=== PATIENT | female | born 1940 | race Hispanic/Latino ===

== ENCOUNTER 2020-01-30 17:21 | Emergency (ER) | payer MEDICARE ==
[2020-01-30 18:44] LABS: APPEARANCE,URINE Clear (CLEAR); BILIRUBIN,URINE Negative (NEGATIVE); COLOR,URINE Yellow (YELLOW); GLUCOSE, URINE (UA) Negative (NEGATIVE); KETONES,URINE Negative (NEGATIVE); LEUKOCYTE ESTERASE ,URINE Trace (NEGATIVE); NITRATE,URINE Positive (NEGATIVE); OCCULT BLOOD,URINE Negative (NEGATIVE); PROTEIN,URINE POS 1+ mg/dL (NEGATIVE); UROBILINOGEN,URINE 0.2 mg/dL (0.2-1.0)
[2020-01-30 18:54] LABS: BACTERIA,URINE Moderate /HPF (None Seen); RBC,URINE 0-1 /HPF (0-1)
[2020-01-30 18:55] LABS: SQUAMOUS EPITHELIAL CELL,UR Rare /HPF (0-2); TRANSITIONAL EPI CELLS,URINE Rare /HPF (None Seen)
[2020-01-30] MEDS ORDERED: CEFTRIAXONE SODIUM 1 GM ONE (19:00)
[2020-01-30 19:17] LABS: CREATININE 1.3 mg/dL (0.5-1.5); POTASSIUM 4.6 mmol/L (3.5-5.1)
[2020-01-30 19:21] LABS: ALBUMIN 3.8 g/dL (3.5-5.0); BILIRUBIN,TOTAL 0.4 mg/dL (0.2-1.0); TOTAL PROTEIN, SERUM 8.5 g/dL (6.0-8.3)
[2020-01-30 19:25] LABS: RAPID GROUP A STREP NEGATIVE (NEGATIVE)
[2020-01-30 19:26] LABS: INR 0.88 (0.85-1.15); PARTIAL THROMBOPLASTIN TIME 30.7 SEC (26.3-35.5); PROTHROMBIN TIME 9.5 SEC (9.6-11.6)
[2020-01-30 19:30] LABS: B-TYPE NATRIURETIC PEPTIDE 43 pg/mL (0-100)
[2020-01-30 19:32] LABS: BASOPHILS % (AUTO) 0.1 % (0.0-5.0); EOSINOPHILS % (AUTO) 0.1 % (0.0-8.0); HEMATOCRIT 36.7 % (36-48); LYMPHOCYTES % (AUTO) 18.5 % (21.0-51.0); MEAN CORPUSCULAR HEMOGLOBIN 29.3 pg (27.0-33.0); MEAN CORPUSCULAR HGB CONC 32.4 g/dL (32.0-36.0); MEAN CORPUSCULAR VOLUME 90.4 fL (79-99); MONOCYTES % (AUTO) 9.4 % (3.0-13.0); NEUTROPHILS % (AUTO) 71.6 % (40.0-77.0); PLATELET COUNT (AUTO) 201 K/uL (130-400); RED BLOOD CELL COUNT(AUTO) 4.06 MIL/uL (4.00-5.50); RED CELL DISTRIBUTION WIDTH 13.2 % (11.0-15.5); WHITE BLOOD COUNT (AUTO) 6.8 K/uL (4.8-10.8)
[2020-01-30] MEDS ORDERED: ACETAMINOPHEN 325 MG TAB ONE (21:09)
== END 2020-01-30 21:53 | disposition home or self-care (01) ==
LOC: EDH 17:21
DX: U07.1 COVID-19 (principal); J12.89 Other viral pneumonia; N30.00 Acute cystitis without hematuria; R10.84 Generalized abdominal pain; E11.9 Type 2 diabetes mellitus without complications; I10 Essential (primary) hypertension
CPT/HCPCS: 36415; 70450; 74176; 80053; 81001; 82550; 83605; 83690; 83880; 84484; 85025; 85610; 85730; 87077; 87088; 87186; 87804 ×2; 87880; 93005; 96374; 99285; J0696; U0003

== ENCOUNTER 2020-02-02 09:15 | Inpatient (IN) | payer MEDICARE ==
[~2020-02-02] VITALS: Ht 152.4 cm; Wt 66.2 kg
[2020-02-02] MEDS ORDERED: SODIUM CHLORIDE 0.9% 250 ML IV ONE (09:44)
[2020-02-02] MEDS ORDERED: CEFTRIAXONE SODIUM 1 GM ONE (09:45)
[2020-02-02 10:11] LABS: APPEARANCE,URINE Clear (CLEAR); BILIRUBIN,URINE Negative (NEGATIVE); COLOR,URINE Dark Yellow (YELLOW); GLUCOSE, URINE (UA) Negative (NEGATIVE); KETONES,URINE 40 mg/dL (NEGATIVE); LEUKOCYTE ESTERASE ,URINE Negative (NEGATIVE); NITRATE,URINE Positive (NEGATIVE); OCCULT BLOOD,URINE Negative (NEGATIVE); PROTEIN,URINE POS 2+ mg/dL (NEGATIVE)
[2020-02-02 10:21] LABS: BACTERIA,URINE Few /HPF (None Seen); RBC,URINE None Seen /HPF (0-1); SQUAMOUS EPITHELIAL CELL,UR Rare /HPF (0-2); WBC,URINE None Seen /HPF (0-1)
[2020-02-02 10:27] LABS: BASOPHILS % (AUTO) 0.2 % (0.0-5.0); EOSINOPHILS % (AUTO) 2.1 % (0.0-8.0); HEMATOCRIT 35.8 % (36-48); LYMPHOCYTES % (AUTO) 10.1 % (21.0-51.0); MEAN CORPUSCULAR HEMOGLOBIN 29.7 pg (27.0-33.0); MEAN CORPUSCULAR HGB CONC 33.2 g/dL (32.0-36.0); MEAN CORPUSCULAR VOLUME 89.3 fL (79-99); MONOCYTES % (AUTO) 10.2 % (3.0-13.0); NEUTROPHILS % (AUTO) 76.9 % (40.0-77.0); PLATELET COUNT (AUTO) 273 K/uL (130-400); RED BLOOD CELL COUNT(AUTO) 4.01 MIL/uL (4.00-5.50); RED CELL DISTRIBUTION WIDTH 12.8 % (11.0-15.5); WHITE BLOOD COUNT (AUTO) 6.7 K/uL (4.8-10.8)
[2020-02-02 10:44] LABS: INR 0.94 (0.85-1.15); PARTIAL THROMBOPLASTIN TIME 34.3 SEC (26.3-35.5); PROTHROMBIN TIME 10.2 SEC (9.6-11.6)
[2020-02-02 10:46] LABS: ALANINE AMINOTRANSFERASE 36 U/L (12-78); ALBUMIN 3.3 g/dL (3.5-5.0); ASPARTATE AMINOTRANSFERASE 59 U/L (10-37); BILIRUBIN,TOTAL 0.5 mg/dL (0.2-1.0); CARBON DIOXIDE 25 mmol/L (21-32); CHLORIDE 100 mmol/L (101-111); CREATINE KINASE, TOTAL 114 U/L (21-232); GLOMERULAR FILTR. RATE CALC 57 mL/min (>60); GLUCOSE,RANDOM 177 mg/dL (70-105); LIPASE 193 U/L (114-286); MYOGLOBIN 52 ng/mL (10-92); POTASSIUM 4.3 mmol/L (3.5-5.1); SODIUM SERUM 134 mmol/L (136-145); TOTAL PROTEIN, SERUM 7.4 g/dL (6.0-8.3); TROPONIN I < 0.04 ng/mL (0.00-0.06); UREA NITROGEN, BLOOD 18 mg/dL (7-18)
[2020-02-02 11:00] LABS: B-TYPE NATRIURETIC PEPTIDE 30 pg/mL (0-100)
[2020-02-02] MEDS ORDERED: ACETAMINOPHEN 325 MG TAB ONE (12:31)
[2020-02-02] MEDS ORDERED: PHENAZOPYRIDINE HCL 200 MG TABLET ONE (12:31)
[2020-02-02 12:47] LABS: ABG BASE EXCESS 1.5 mmol/L (-2.0-3.0); ABG HCO3 25.1 mmol/L (21.0-28.0); ABG OXYGEN SATURATION 93.6 % (95.0-99.0); ABG PCO2 36 mmHg (32-45)
[2020-02-02] MEDS ORDERED: DOXYCYCLINE HYCLATE 100 MG TABLET PO ONE (14:48)
[2020-02-02] MEDS: CEFTRIAXONE SODIUM 1 GM IVP SCH (20:00)
[2020-02-02] MEDS: DOXYCYCLINE HYCLATE 100 MG TABLET PO SCH (21:00)
[2020-02-02] MEDS ORDERED: ACETAMINOPHEN-CODEINE 300/30MG TAB ONE (21:51)
[2020-02-03] MEDS ORDERED: LACTATED RINGERS 1000ML 1,000 ML IV SCH (05:00)
[2020-02-03] MEDS ORDERED: DOXYCYCLINE HYCLATE 100 MG TABLET PO ONE (05:00)
[2020-02-03 06:10] VITALS: BP 165/59
--- NOTE | 2020-02-03 06:10 | NUR ---
PT ARRIVED VIA STRETCHER ER NURSE. PT AAOx3 DENIES PAIN, IS SHIVERING, AFEBRILE. DRY NON PRODUCTIVE COUGH. ON 3L VIA MA 94%. BED TO LOWEST LEVEL. CALL LIGHT WITHIN REACH.
[2020-02-03 07:30] LABS: BASOPHILS % (AUTO) 0.1 % (0.0-5.0); LYMPHOCYTES % (AUTO) 13.3 % (21.0-51.0); MEAN CORPUSCULAR HEMOGLOBIN 29.4 pg (27.0-33.0); MEAN CORPUSCULAR HGB CONC 32.2 g/dL (32.0-36.0); MEAN CORPUSCULAR VOLUME 91.1 fL (79-99); MONOCYTES % (AUTO) 12.9 % (3.0-13.0); NEUTROPHILS % (AUTO) 72.9 % (40.0-77.0); PLATELET COUNT (AUTO) 299 K/uL (130-400); RED BLOOD CELL COUNT(AUTO) 3.95 MIL/uL (4.00-5.50); RED CELL DISTRIBUTION WIDTH 12.9 % (11.0-15.5); WHITE BLOOD COUNT (AUTO) 7.9 K/uL (4.8-10.8)
[2020-02-03 07:53] LABS: CREATININE 0.7 mg/dL (0.5-1.5); CRP QUANTITATIVE 158.6 mg/L (0.00-9.0); POTASSIUM 5.2 mmol/L (3.5-5.1)
[2020-02-03] MEDS: DOXYCYCLINE HYCLATE 100 MG TABLET PO SCH ×2 (07:59→21:14)
[2020-02-03] MEDS: PHENAZOPYRIDINE HCL 200 MG TABLET PO SCH (07:59)
[2020-02-03 08:00] VITALS: BP 131/70
[2020-02-03] MEDS: CEFTRIAXONE SODIUM 1 GM IVP SCH ×2 (08:00→21:14)
[2020-02-03] MEDS: ACETAMINOPHEN-CODEINE 300/30MG TAB PO PRN ×2 (08:23→21:18)
[2020-02-03] MEDS: METHYLPREDNISOLONE SOD SUCC 40MG/ML 1ML IVP SCH ×2 (08:34→21:14)
[2020-02-03] MEDS ORDERED: ENOXAPARIN SODIUM 40 MG/0.4 ML SYRINGE SQ SCH (09:00)
--- NOTE | 2020-02-03 09:33 | NUR ---
DCP: HOME WITH FAMILY Sw unable to meet with pt who is in [facility] unit. Sw spoke to pt's son Frederick Castelan [phone]. Son reports that prior to admit pt was living at home with her grandson. Son states pt is able to complete all ADLS on her own, uses no in home care services or DME. Son transports as needed. PCP is Dr Logan and [facility] is used for rx meds. [place]. Addendum: 02/03/20 at 0936 by SAAD CIFUENTES Amended: Links added.
--- NOTE | 2020-02-03 10:41 | NUR ---
CHART CHECK COMPLETED. Pt IS A 79 Y.O. FEMALE ADMITTED SECONDARY TO COMPLICATED UTI, COVID PNA, DEHYDRATION. Pt HAS A PAST MEDICAL HISTORY SIGNIFICANT FOR CHOLECYSTECTOMY, DMII, HTN. Pt CURRENTLY ON REGULAR TEXTURE, THIN LIQUIDS. SKILLED SPEECH THERAPY IS NOT WARRANTED AT THIS TIME. Addendum: 02/03/20 at 1044 by KIMO HAMILTON, [facility] Amended: Links added.
[2020-02-03 12:00] VITALS: BP 126/63
[2020-02-03 16:00] VITALS: BP 146/80
[2020-02-03] MEDS ORDERED: ONDA4TAB10 PO (16:39)
[2020-02-03] MEDS ORDERED: PHEN99.5 PO (16:39)
[2020-02-03] MEDS ORDERED: ASCO500C18 PO (16:39)
[2020-02-03] MEDS ORDERED: METF-444 PO (16:39)
[2020-02-03] MEDS ORDERED: LOSA50TA64 PO (16:39)
[2020-02-03] MEDS ORDERED: LEVO500T89 PO (16:39)
[2020-02-03] MEDS ORDERED: MV-M1TAB57 PO (16:39)
[2020-02-03] MEDS ORDERED: ACET-66 PO (16:39)
[2020-02-03] MEDS ORDERED: CHOL100046 PO (16:39)
[2020-02-03] MEDS ORDERED: DEXTROSE 50%-WATER 50 ML DISP.SYRIN IV PRN (17:00)
[2020-02-03] MEDS ORDERED: GLUCAGON 1MG KIT 1 MG ML IM PRN (17:00)
--- NOTE | 2020-02-03 20:00 | NUR ---
PM Assessment Received pt in bed, with oxygen re-initiated at 2L/NC as reported by SANGEETA Lam O2 sat 86, routine assessment done, plan of care discuss with current treatments. Pt claimed slight SOB with no exertion, assurance given that we are closely monitoring as how she is doing. Pt encourage to do deep breathing exercises, explained how to do it, & re-demonstrated well. Call light noted not working, fix by Genaro RUTHERFORD as pt claimed has been trying to call but no one answers.
[2020-02-03 20:45] VITALS: BP 131/72
[2020-02-03] MEDS: ENOXAPARIN SODIUM 40 MG/0.4 ML SYRINGE SQ SCH (21:16)
[2020-02-03] MEDS: INSULIN GLARGINE 100 UNITS/ML 10 ML VIAL SQ SCH (21:32)
[2020-02-03] MEDS: INSULIN HUMULIN R 100 UNIT/ML 3ML SQ SCH (21:34)
[2020-02-03 23:54] VITALS: BP 153/78
[2020-02-04] MEDS: GUAIFENESIN-DM 200/20 MG 10 ML PO PRN ×2 (02:53→11:04)
[2020-02-04 03:20] VITALS: BP 151/74
[2020-02-04 06:16] LABS: EOSINOPHILS % (AUTO) 2.5 % (0.0-8.0); HEMATOCRIT 32.5 % (36-48); LYMPHOCYTES % (AUTO) 13.3 % (21.0-51.0); MEAN CORPUSCULAR HEMOGLOBIN 29.6 pg (27.0-33.0); MEAN CORPUSCULAR HGB CONC 33.2 g/dL (32.0-36.0); MONOCYTES % (AUTO) 5.1 % (3.0-13.0); NEUTROPHILS % (AUTO) 77.9 % (40.0-77.0); PLATELET COUNT (AUTO) 333 K/uL (130-400); RED BLOOD CELL COUNT(AUTO) 3.65 MIL/uL (4.00-5.50); RED CELL DISTRIBUTION WIDTH 12.9 % (11.0-15.5); WHITE BLOOD COUNT (AUTO) 6.7 K/uL (4.8-10.8)
[2020-02-04] MEDS: INSULIN HUMULIN R 100 UNIT/ML 3ML SQ SCH ×4 (06:37→21:00)
[2020-02-04 06:44] LABS: ALANINE AMINOTRANSFERASE 34 U/L (12-78); ALBUMIN 2.8 g/dL (3.5-5.0); ASPARTATE AMINOTRANSFERASE 57 U/L (10-37); BILIRUBIN,TOTAL 0.4 mg/dL (0.2-1.0); CARBON DIOXIDE 25 mmol/L (21-32); CHLORIDE 102 mmol/L (101-111); CREATININE 0.9 mg/dL (0.5-1.5); GLOMERULAR FILTR. RATE CALC 65 mL/min (>60); GLUCOSE,RANDOM 178 mg/dL (70-105); LACTATE DEHYDROGENASE 250 U/L (81-234); POTASSIUM 4.1 mmol/L (3.5-5.1); SODIUM SERUM 136 mmol/L (136-145); TOTAL PROTEIN, SERUM 7.5 g/dL (6.0-8.3); UREA NITROGEN, BLOOD 22 mg/dL (7-18)
[2020-02-04 08:39] VITALS: BP 162/89
[2020-02-04] MEDS: METHYLPREDNISOLONE SOD SUCC 40MG/ML 1ML IVP SCH ×2 (09:45→21:40)
[2020-02-04] MEDS: PHENAZOPYRIDINE HCL 200 MG TABLET PO SCH (09:45)
[2020-02-04] MEDS: CEFTRIAXONE SODIUM 1 GM IVP SCH ×2 (09:46→21:40)
[2020-02-04] MEDS: DOXYCYCLINE HYCLATE 100 MG TABLET PO SCH ×2 (09:46→21:40)
[2020-02-04] MEDS: ENOXAPARIN SODIUM 40 MG/0.4 ML SYRINGE SQ SCH ×2 (09:48→21:41)
[2020-02-04 12:42] VITALS: BP 143/73
[2020-02-04] MEDS ORDERED: KETOROLAC TROMETHAMINE 30MG/ML IV SCH (12:45)
[2020-02-04] MEDS: BENZOCAINE/MENTH/CETYLPYRD CL 1 EACH LOZENGE MM PRN (13:12)
[2020-02-04 16:29] VITALS: BP 145/77
[2020-02-04] MEDS ORDERED: ONDANSETRON ODT 4 MG TAB PO PRN (17:15)
[2020-02-04] MEDS ORDERED: LOSARTAN 50 MG TABLET PO PRN (17:15)
[2020-02-04] MEDS: METFORMIN HCL 500 MG TABLET PO SCH (18:00)
[2020-02-04] MEDS: PHARMACY COMMUNICATION MISC SCH (18:09)
--- NOTE | 2020-02-04 19:55 | NUR ---
PM Assessment Received pt on semi supine position, routine assessment done, plan of care discuss & pt confirm awareness pending U/S of the abdomen, reminded to remain NPO for now. Pt currently denies discomfort.
[2020-02-04 20:17] VITALS: BP 144/72
[2020-02-04] MEDS ORDERED: PHENAZOPYRIDINE HCL 99.5 MG PO SCH (21:00)
[2020-02-04] MEDS: INSULIN GLARGINE 100 UNITS/ML 10 ML VIAL SQ SCH (21:43)
--- NOTE | 2020-02-04 22:54 | NUR ---
Re: ordered U/S of the abdomen Received a call from the radiology c/o [facility] & stated that radiologist Dr. Lennon would like to clarify whether this test is really necessary, need clarification from ordering MD. I did inform him that the pt has been complaining of abdominal discomfort/pain. For now we agreed to keep the pt NPO till this issue is clarified.
[2020-02-04 23:47] VITALS: BP 155/81
--- NOTE | 2020-02-04 23:50 | NUR ---
Re: U/S of the abdomen U/S tech showed up & stated he will proceed with the ordered test, completed.
[2020-02-05] MEDS: BENZOCAINE/MENTH/CETYLPYRD CL 1 EACH LOZENGE MM PRN ×2 (00:43→21:34)
[2020-02-05] MEDS: PHARMACY COMMUNICATION MISC SCH ×3 (02:15→11:04)
[2020-02-05 03:57] VITALS: BP 148/73
[2020-02-05 06:13] LABS: BASOPHILS % (AUTO) 0.2 % (0.0-5.0); HEMATOCRIT 35.1 % (36-48); LYMPHOCYTES % (AUTO) 7.3 % (21.0-51.0); MEAN CORPUSCULAR HEMOGLOBIN 29.4 pg (27.0-33.0); MEAN CORPUSCULAR HGB CONC 32.8 g/dL (32.0-36.0); MEAN CORPUSCULAR VOLUME 89.8 fL (79-99); MONOCYTES % (AUTO) 5.7 % (3.0-13.0); NEUTROPHILS % (AUTO) 86.1 % (40.0-77.0); PLATELET COUNT (AUTO) 378 K/uL (130-400); RED BLOOD CELL COUNT(AUTO) 3.91 MIL/uL (4.00-5.50); RED CELL DISTRIBUTION WIDTH 12.8 % (11.0-15.5); WHITE BLOOD COUNT (AUTO) 12.7 K/uL (4.8-10.8)
[2020-02-05] MEDS: INSULIN HUMULIN R 100 UNIT/ML 3ML SQ SCH ×4 (06:18→21:33)
[2020-02-05 06:55] LABS: ALBUMIN 2.7 g/dL (3.5-5.0); BILIRUBIN,TOTAL 0.4 mg/dL (0.2-1.0); CREATININE 0.8 mg/dL (0.5-1.5); CRP QUANTITATIVE 60.2 mg/L (0.00-9.0); POTASSIUM 3.8 mmol/L (3.5-5.1); TOTAL PROTEIN, SERUM 7.6 g/dL (6.0-8.3)
[2020-02-05 08:00] VITALS: BP 151/82
[2020-02-05] MEDS: CEFTRIAXONE SODIUM 1 GM IVP SCH ×2 (08:53→21:34)
[2020-02-05] MEDS: METHYLPREDNISOLONE SOD SUCC 40MG/ML 1ML IVP SCH ×2 (08:53→21:00)
[2020-02-05] MEDS: METFORMIN HCL 500 MG TABLET PO SCH ×2 (08:54→17:29)
[2020-02-05] MEDS: PHENAZOPYRIDINE HCL 200 MG TABLET PO SCH (08:54)
[2020-02-05] MEDS: DOXYCYCLINE HYCLATE 100 MG TABLET PO SCH ×2 (08:54→21:35)
[2020-02-05] MEDS: ASCORBIC ACID 500 MG TAB PO SCH (08:54)
[2020-02-05] MEDS: ENOXAPARIN SODIUM 40 MG/0.4 ML SYRINGE SQ SCH ×2 (08:55→21:35)
[2020-02-05] MEDS: ACETAMINOPHEN-CODEINE 300/30MG TAB PO PRN (08:55)
[2020-02-05] MEDS ORDERED: NON-FORMULARY MEDICATION 1 EACH (Ascorbic Acid (Vitamin C) 500 MG) PO SCH (09:00)
[2020-02-05] MEDS: LORAZEPAM 2 MG/ML 1 ML VIAL IM PRN (09:17)
[2020-02-05 12:00] VITALS: BP 133/72
[2020-02-05] MEDS: MULTIVITAMIN WITH MINERALS TABLET PO SCH (12:04)
[2020-02-05] MEDS ORDERED: KETOROLAC TROMETHAMINE 15MG/ML IV PRN (12:30)
[2020-02-05 16:00] VITALS: BP 129/82
[2020-02-05 20:12] VITALS: BP 147/82
[2020-02-05] MEDS ORDERED: METHYLPREDNISOLONE SOD SUCC 125MG/2ML VIAL ONE (21:24)
[2020-02-05] MEDS: INSULIN GLARGINE 100 UNITS/ML 10 ML VIAL SQ SCH (21:33)
[2020-02-05] MEDS: GUAIFENESIN-DM 200/20 MG 10 ML PO PRN (21:34)
[2020-02-06 00:12] VITALS: BP 132/72
[2020-02-06] MEDS: PHARMACY COMMUNICATION MISC SCH ×3 (02:15→13:58)
[2020-02-06 04:12] VITALS: BP 148/77
[2020-02-06 06:03] LABS: BASOPHILS % (AUTO) 0.2 % (0.0-5.0); HEMATOCRIT 34.3 % (36-48); LYMPHOCYTES % (AUTO) 6.7 % (21.0-51.0); MEAN CORPUSCULAR HEMOGLOBIN 28.8 pg (27.0-33.0); MEAN CORPUSCULAR HGB CONC 32.4 g/dL (32.0-36.0); MEAN CORPUSCULAR VOLUME 89.1 fL (79-99); MONOCYTES % (AUTO) 6.5 % (3.0-13.0); NEUTROPHILS % (AUTO) 85.6 % (40.0-77.0); PLATELET COUNT (AUTO) 401 K/uL (130-400); RED BLOOD CELL COUNT(AUTO) 3.85 MIL/uL (4.00-5.50); RED CELL DISTRIBUTION WIDTH 12.8 % (11.0-15.5); WHITE BLOOD COUNT (AUTO) 12.8 K/uL (4.8-10.8)
[2020-02-06] MEDS: INSULIN HUMULIN R 100 UNIT/ML 3ML SQ SCH ×4 (06:08→20:04)
[2020-02-06 06:31] LABS: ALBUMIN 2.8 g/dL (3.5-5.0); BILIRUBIN,TOTAL 0.6 mg/dL (0.2-1.0); CREATININE 0.6 mg/dL (0.5-1.5); CRP QUANTITATIVE 60.8 mg/L (0.00-9.0); POTASSIUM 3.7 mmol/L (3.5-5.1); TOTAL PROTEIN, SERUM 7.5 g/dL (6.0-8.3)
--- NOTE | 2020-02-06 06:50 | NUR ---
PATIENT FREQUENTLY SEEN TURNING SIDE TO SIDE THROUGHOUT SHIFT. STATES AND PERFORMS DOES BREATHING EXERCISES INSTRUCTED AT BEGINNING OF SHIFT.
[2020-02-06 08:00] VITALS: BP 104/59
[2020-02-06] MEDS: ASCORBIC ACID 500 MG TAB PO SCH (09:24)
[2020-02-06] MEDS: ENOXAPARIN SODIUM 40 MG/0.4 ML SYRINGE SQ SCH ×2 (09:25→20:06)
[2020-02-06] MEDS: PHENAZOPYRIDINE HCL 200 MG TABLET PO SCH (09:25)
[2020-02-06] MEDS: CEFTRIAXONE SODIUM 1 GM IVP SCH ×2 (09:25→20:05)
[2020-02-06] MEDS: METFORMIN HCL 500 MG TABLET PO SCH ×2 (09:25→18:57)
[2020-02-06] MEDS: DEXAMETHASONE 4 MG TAB PO SCH ×2 (09:26→09:46)
[2020-02-06] MEDS: (Cholecalciferol (Vitamin D3) (Vitamin D3) 25 MCG) PO SCH (09:28)
[2020-02-06] MEDS: GUAIFENESIN-DM 200/20 MG 10 ML PO PRN (09:35)
[2020-02-06 11:00] VITALS: BP 151/73
[2020-02-06] MEDS: MULTIVITAMIN WITH MINERALS TABLET PO SCH (11:15)
[2020-02-06] MEDS: DOXYCYCLINE HYCLATE 100 MG TABLET PO SCH ×2 (11:16→20:05)
[2020-02-06 16:00] VITALS: BP 150/85
--- NOTE | 2020-02-06 17:21 | NUR ---
Patient's VSS with with minor abdominal discomfort on shift. CT abdomen no contrast performed on shift, awaiting results. Patient resting comfortably on 3L of O2 93%
[2020-02-06 19:30] VITALS: BP 162/82
[2020-02-06] MEDS: ACETAMINOPHEN-CODEINE 300/30MG TAB PO PRN (19:52)
[2020-02-06] MEDS: LACTULOSE 20 GM/30 ML UDCUP PO PRN (19:52)
[2020-02-06] MEDS: INSULIN GLARGINE 100 UNITS/ML 10 ML VIAL SQ SCH (20:00)
[2020-02-07] VITALS: BP 155/90
[2020-02-07] MEDS: GUAIFENESIN-DM 200/20 MG 10 ML PO PRN (00:21)
[2020-02-07] MEDS: BENZOCAINE/MENTH/CETYLPYRD CL 1 EACH LOZENGE MM PRN (00:21)
[2020-02-07] MEDS: PHARMACY COMMUNICATION MISC SCH ×3 (02:15→14:12)
[2020-02-07 03:59] LABS: BASOPHILS % (AUTO) 0.2 % (0.0-5.0); HEMATOCRIT 34.1 % (36-48); LYMPHOCYTES % (AUTO) 8.4 % (21.0-51.0); MEAN CORPUSCULAR HEMOGLOBIN 29.1 pg (27.0-33.0); MEAN CORPUSCULAR HGB CONC 32.6 g/dL (32.0-36.0); MEAN CORPUSCULAR VOLUME 89.3 fL (79-99); MONOCYTES % (AUTO) 9.5 % (3.0-13.0); NEUTROPHILS % (AUTO) 80.6 % (40.0-77.0); PLATELET COUNT (AUTO) 431 K/uL (130-400); RED BLOOD CELL COUNT(AUTO) 3.82 MIL/uL (4.00-5.50); RED CELL DISTRIBUTION WIDTH 12.7 % (11.0-15.5); WHITE BLOOD COUNT (AUTO) 12.7 K/uL (4.8-10.8)
[2020-02-07 04:00] VITALS: BP 139/60
[2020-02-07 04:06] LABS: CARBON DIOXIDE 24 mmol/L (21-32); CHLORIDE 105 mmol/L (101-111); CREATININE 0.8 mg/dL (0.5-1.5); GLOMERULAR FILTR. RATE CALC 74 mL/min (>60); GLUCOSE,RANDOM 122 mg/dL (70-105); POTASSIUM 3.3 mmol/L (3.5-5.1); SODIUM SERUM 141 mmol/L (136-145); UREA NITROGEN, BLOOD 27 mg/dL (7-18)
[2020-02-07] MEDS ORDERED: LIDOCAINE HCL-MPF 1% 2ML VIAL IV PRN (05:15)
[2020-02-07] MEDS ORDERED: POTASSIUM CHLORIDE 10MEQ/100ML 100 ML IV PRN (05:15)
[2020-02-07] MEDS: INSULIN HUMULIN R 100 UNIT/ML 3ML SQ SCH ×4 (05:48→22:16)
[2020-02-07] MEDS: POTASSIUM CHLORIDE 10% ELIXIR 20 MEQ/15 ML UDCUP PO PRN (05:49)
[2020-02-07] MEDS: LACTULOSE 20 GM/30 ML UDCUP PO PRN (07:26)
[2020-02-07 08:00] VITALS: BP_SYST 106; BP_SYST 155; BP_DIAS 64; BP_DIAS 80
[2020-02-07] MEDS: DOXYCYCLINE HYCLATE 100 MG TABLET PO SCH ×2 (09:18→20:52)
[2020-02-07] MEDS: ASCORBIC ACID 500 MG TAB PO SCH (09:18)
[2020-02-07] MEDS: ENOXAPARIN SODIUM 40 MG/0.4 ML SYRINGE SQ SCH ×2 (09:18→20:54)
[2020-02-07] MEDS: CEFTRIAXONE SODIUM 1 GM IVP SCH ×2 (09:19→20:53)
[2020-02-07] MEDS: PHENAZOPYRIDINE HCL 200 MG TABLET PO SCH (09:19)
[2020-02-07] MEDS: METFORMIN HCL 500 MG TABLET PO SCH ×2 (09:19→17:56)
[2020-02-07] MEDS: DEXAMETHASONE 4 MG TAB PO SCH (09:49)
[2020-02-07] MEDS: LACTULOSE 20 GM/30 ML UDCUP PO SCH ×3 (10:00→21:33)
[2020-02-07] MEDS: (Cholecalciferol (Vitamin D3) (Vitamin D3) 25 MCG) PO SCH (10:06)
[2020-02-07 11:00] VITALS: BP 130/64
[2020-02-07] MEDS: GABAPENTIN 100 MG CAPSULE PO SCH ×2 (14:37→20:53)
[2020-02-07] MEDS: MULTIVITAMIN WITH MINERALS TABLET PO SCH (14:37)
[2020-02-07 15:00] VITALS: BP 135/72
--- NOTE | 2020-02-07 18:18 | NUR ---
Pt A/Ox4 VSS with no complaints of pain or discomfort. Patient bladder scanned (69 ml) on shift.Lactulose held due to diarrhea, MD made aware. No new changes.
[2020-02-07 20:00] VITALS: BP 138/79
[2020-02-07] MEDS: INSULIN GLARGINE 100 UNITS/ML 10 ML VIAL SQ SCH (21:23)
[2020-02-08] VITALS (7 sets, daily range): BP systolic 121–139; BP diastolic 64–79
[2020-02-08] MEDS: PHARMACY COMMUNICATION MISC SCH ×3 (02:15→13:18)
[2020-02-08] MEDS: LACTULOSE 20 GM/30 ML UDCUP PO SCH ×4 (04:00→22:00)
[2020-02-08 06:06] LABS: BASOPHILS % (AUTO) 0.2 % (0.0-5.0); HEMATOCRIT 32.9 % (36-48); LYMPHOCYTES % (AUTO) 6.9 % (21.0-51.0); MEAN CORPUSCULAR HEMOGLOBIN 28.6 pg (27.0-33.0); MEAN CORPUSCULAR HGB CONC 32.5 g/dL (32.0-36.0); MONOCYTES % (AUTO) 8.9 % (3.0-13.0); NEUTROPHILS % (AUTO) 81.9 % (40.0-77.0); PLATELET COUNT (AUTO) 440 K/uL (130-400); RED BLOOD CELL COUNT(AUTO) 3.74 MIL/uL (4.00-5.50); RED CELL DISTRIBUTION WIDTH 12.5 % (11.0-15.5); WHITE BLOOD COUNT (AUTO) 13.6 K/uL (4.8-10.8)
[2020-02-08] MEDS: INSULIN HUMULIN R 100 UNIT/ML 3ML SQ SCH ×4 (06:29→22:13)
[2020-02-08 06:42] LABS: ALBUMIN 2.5 g/dL (3.5-5.0); BILIRUBIN,TOTAL 0.7 mg/dL (0.2-1.0); CREATININE 0.6 mg/dL (0.5-1.5); CRP QUANTITATIVE 102.1 mg/L (0.00-9.0); POTASSIUM 3.4 mmol/L (3.5-5.1)
[2020-02-08] MEDS: DOXYCYCLINE HYCLATE 100 MG TABLET PO SCH ×2 (09:51→21:42)
[2020-02-08] MEDS: CEFTRIAXONE SODIUM 1 GM IVP SCH ×2 (09:51→21:41)
[2020-02-08] MEDS: METFORMIN HCL 500 MG TABLET PO SCH ×2 (09:51→18:26)
[2020-02-08] MEDS: GUAIFENESIN-DM 200/20 MG 10 ML PO PRN (09:51)
[2020-02-08] MEDS: PHENAZOPYRIDINE HCL 200 MG TABLET PO SCH (09:52)
[2020-02-08] MEDS: DEXAMETHASONE 4 MG TAB PO SCH ×3 (09:53→21:42)
[2020-02-08] MEDS: GABAPENTIN 100 MG CAPSULE PO SCH ×2 (09:54→21:42)
[2020-02-08] MEDS: ASCORBIC ACID 500 MG TAB PO SCH (09:55)
[2020-02-08] MEDS: (Cholecalciferol (Vitamin D3) (Vitamin D3) 25 MCG) PO SCH (09:56)
[2020-02-08] MEDS: ENOXAPARIN SODIUM 40 MG/0.4 ML SYRINGE SQ SCH ×2 (09:56→21:45)
[2020-02-08] MEDS: POTASSIUM CHLORIDE 20 MEQ ERTAB PO PRN (09:58)
[2020-02-08] MEDS: LORAZEPAM 2 MG/ML 1 ML VIAL IM PRN (10:00)
[2020-02-08] MEDS: FLUCONAZOLE 100 MG TAB PO SCH (12:02)
[2020-02-08] MEDS: MULTIVITAMIN WITH MINERALS TABLET PO SCH (12:02)
[2020-02-08] MEDS: CLOTRIMAZOLE 10 MG TROCHE MM SCH ×2 (12:02→18:26)
[2020-02-08] MEDS: INSULIN GLARGINE 100 UNITS/ML 10 ML VIAL SQ SCH (22:14)
[2020-02-09] MEDS: CLOTRIMAZOLE 10 MG TROCHE MM SCH ×5 (00:09→21:07)
[2020-02-09] MEDS: PHARMACY COMMUNICATION MISC SCH ×3 (02:15→08:13)
[2020-02-09] MEDS: LACTULOSE 20 GM/30 ML UDCUP PO SCH ×4 (04:00→22:00)
[2020-02-09 04:07] LABS: BASOPHILS % (AUTO) 0.1 % (0.0-5.0); HEMATOCRIT 32.6 % (36-48); LYMPHOCYTES % (AUTO) 7.9 % (21.0-51.0); MEAN CORPUSCULAR HEMOGLOBIN 28.5 pg (27.0-33.0); MEAN CORPUSCULAR HGB CONC 32.5 g/dL (32.0-36.0); MEAN CORPUSCULAR VOLUME 87.6 fL (79-99); MONOCYTES % (AUTO) 4.5 % (3.0-13.0); NEUTROPHILS % (AUTO) 84.8 % (40.0-77.0); PLATELET COUNT (AUTO) 460 K/uL (130-400); RED BLOOD CELL COUNT(AUTO) 3.72 MIL/uL (4.00-5.50); RED CELL DISTRIBUTION WIDTH 12.4 % (11.0-15.5); WHITE BLOOD COUNT (AUTO) 9.3 K/uL (4.8-10.8)
[2020-02-09 05:00] VITALS: BP 129/71
[2020-02-09 05:14] LABS: ALANINE AMINOTRANSFERASE 49 U/L (12-78); ALBUMIN 2.4 g/dL (3.5-5.0); ASPARTATE AMINOTRANSFERASE 38 U/L (10-37); BILIRUBIN,TOTAL 0.4 mg/dL (0.2-1.0); CARBON DIOXIDE 22 mmol/L (21-32); CHLORIDE 102 mmol/L (101-111); CREATININE 0.7 mg/dL (0.5-1.5); GLOMERULAR FILTR. RATE CALC 86 mL/min (>60); GLUCOSE,RANDOM 101 mg/dL (70-105); LACTATE DEHYDROGENASE 254 U/L (81-234); POTASSIUM 3.9 mmol/L (3.5-5.1); SODIUM SERUM 136 mmol/L (136-145); TOTAL PROTEIN, SERUM 7.1 g/dL (6.0-8.3); UREA NITROGEN, BLOOD 26 mg/dL (7-18)
[2020-02-09] MEDS: INSULIN HUMULIN R 100 UNIT/ML 3ML SQ SCH ×4 (05:41→21:00)
[2020-02-09] MEDS: CEFTRIAXONE SODIUM 1 GM IVP SCH ×2 (07:57→21:06)
[2020-02-09] MEDS: ASCORBIC ACID 500 MG TAB PO SCH (07:58)
[2020-02-09] MEDS: GABAPENTIN 100 MG CAPSULE PO SCH ×2 (07:58→21:08)
[2020-02-09] MEDS: METFORMIN HCL 500 MG TABLET PO SCH ×2 (07:58→17:18)
[2020-02-09] MEDS: DOXYCYCLINE HYCLATE 100 MG TABLET PO SCH ×2 (07:58→21:07)
[2020-02-09] MEDS: (Cholecalciferol (Vitamin D3) (Vitamin D3) 25 MCG) PO SCH (07:58)
[2020-02-09] MEDS: ENOXAPARIN SODIUM 40 MG/0.4 ML SYRINGE SQ SCH ×2 (07:59→21:06)
[2020-02-09 08:00] VITALS: BP 137/78
[2020-02-09] MEDS: DEXAMETHASONE 4 MG TAB PO SCH ×3 (08:00→21:25)
[2020-02-09] MEDS: PHENAZOPYRIDINE HCL 200 MG TABLET PO SCH (08:00)
[2020-02-09] MEDS: GUAIFENESIN-DM 200/20 MG 10 ML PO PRN ×2 (08:01→21:06)
[2020-02-09 12:00] VITALS: BP 133/79
[2020-02-09] MEDS: FLUCONAZOLE 100 MG TAB PO SCH (12:50)
[2020-02-09] MEDS: MULTIVITAMIN WITH MINERALS TABLET PO SCH (12:50)
[2020-02-09 15:30] VITALS: BP 141/85
--- NOTE | 2020-02-09 17:27 | NUR ---
Patient is still pending 2 units of plasma. Blood bank stated it should be here this evening. Will endorse to evening RN
[2020-02-09 19:20] VITALS: BP 142/80
[2020-02-09] MEDS: INSULIN GLARGINE 100 UNITS/ML 10 ML VIAL SQ SCH (21:00)
[2020-02-09 23:23] VITALS: BP 156/85
[2020-02-10] VITALS (7 sets, daily range): BP systolic 116–168; BP diastolic 68–93
[2020-02-10] MEDS: PHARMACY COMMUNICATION MISC SCH ×3 (02:15→12:47)
[2020-02-10] MEDS: LACTULOSE 20 GM/30 ML UDCUP PO SCH ×4 (04:00→21:26)
[2020-02-10] MEDS: GUAIFENESIN-DM 200/20 MG 10 ML PO PRN ×3 (04:32→21:25)
[2020-02-10 05:40] LABS: BASOPHILS % (AUTO) 0.2 % (0.0-5.0); HEMATOCRIT 31.1 % (36-48); LYMPHOCYTES % (AUTO) 4.9 % (21.0-51.0); MEAN CORPUSCULAR HEMOGLOBIN 28.5 pg (27.0-33.0); MEAN CORPUSCULAR HGB CONC 32.2 g/dL (32.0-36.0); MEAN CORPUSCULAR VOLUME 88.6 fL (79-99); MONOCYTES % (AUTO) 7.1 % (3.0-13.0); PLATELET COUNT (AUTO) 505 K/uL (130-400); RED BLOOD CELL COUNT(AUTO) 3.51 MIL/uL (4.00-5.50); RED CELL DISTRIBUTION WIDTH 12.4 % (11.0-15.5); WHITE BLOOD COUNT (AUTO) 11.6 K/uL (4.8-10.8)
[2020-02-10 06:22] LABS: ALANINE AMINOTRANSFERASE 41 U/L (12-78); ALBUMIN 2.3 g/dL (3.5-5.0); ASPARTATE AMINOTRANSFERASE 35 U/L (10-37); BILIRUBIN,TOTAL 0.5 mg/dL (0.2-1.0); CARBON DIOXIDE 22 mmol/L (21-32); CHLORIDE 101 mmol/L (101-111); CREATININE 0.6 mg/dL (0.5-1.5); GLOMERULAR FILTR. RATE CALC 103 mL/min (>60); GLUCOSE,RANDOM 146 mg/dL (70-105); LACTATE DEHYDROGENASE 369 U/L (81-234); POTASSIUM 3.5 mmol/L (3.5-5.1); SODIUM SERUM 135 mmol/L (136-145); TOTAL PROTEIN, SERUM 6.6 g/dL (6.0-8.3); UREA NITROGEN, BLOOD 24 mg/dL (7-18)
[2020-02-10] MEDS: CLOTRIMAZOLE 10 MG TROCHE MM SCH ×3 (06:26→18:12)
[2020-02-10] MEDS: INSULIN HUMULIN R 100 UNIT/ML 3ML SQ SCH ×4 (06:26→21:25)
[2020-02-10] MEDS: POTASSIUM CHLORIDE 20 MEQ ERTAB PO PRN (06:54)
[2020-02-10] MEDS: DOXYCYCLINE HYCLATE 100 MG TABLET PO SCH ×2 (09:32→21:24)
[2020-02-10] MEDS: ASCORBIC ACID 500 MG TAB PO SCH (09:32)
[2020-02-10] MEDS: METFORMIN HCL 500 MG TABLET PO SCH ×2 (09:32→18:12)
[2020-02-10] MEDS: (Cholecalciferol (Vitamin D3) (Vitamin D3) 25 MCG) PO SCH (09:33)
[2020-02-10] MEDS: ENOXAPARIN SODIUM 40 MG/0.4 ML SYRINGE SQ SCH ×2 (09:33→21:25)
[2020-02-10] MEDS: GABAPENTIN 100 MG CAPSULE PO SCH ×2 (09:33→21:24)
[2020-02-10] MEDS: CEFTRIAXONE SODIUM 1 GM IVP SCH ×2 (09:36→21:24)
[2020-02-10] MEDS: PHENAZOPYRIDINE HCL 200 MG TABLET PO SCH (09:37)
[2020-02-10] MEDS: DEXAMETHASONE 4 MG TAB PO SCH ×2 (09:43→12:47)
[2020-02-10] MEDS: FLUCONAZOLE 100 MG TAB PO SCH (12:35)
[2020-02-10] MEDS: MULTIVITAMIN WITH MINERALS TABLET PO SCH (12:35)
[2020-02-10] MEDS: METHYLPREDNISOLONE SOD SUCC 125MG/2ML VIAL IVP SCH ×2 (13:35→21:24)
--- NOTE | 2020-02-10 15:38 | NUR ---
RDSCREEN - LOS X 8 Pt admitted with UTI, COVID-19 PNA. Pt with [address]gm [address] in [address], no complaint of GI distress. Decreased appetite/PO intake. WBC 11.6, BG 206, LDH 369, Alb 2.3. Recommend 60gm CC diet modification Recommend 500mg Vit C (BID), 220mg ZnSO4 Recommend 60mL ProMod QD Recommend Glucerna BID RD to continue to monitor. Please notify as additional nutrition concerns arise. Thank you.
--- NOTE | 2020-02-10 18:04 | NUR ---
Patient had an episode of chest pain this evening after deep breathing. EKG and troponin drawn, both normal. notified. Chest Xray done on shift. Plasma still pending. Addendum: 02/10/20 at 1810 by BEBA GALVEZ RN RN Amended: Links added.
[2020-02-10] MEDS: ACETAMINOPHEN-CODEINE 300/30MG TAB PO PRN ×2 (18:14→22:29)
[2020-02-10] MEDS: POTASSIUM CHLORIDE 10% ELIXIR 20 MEQ/15 ML UDCUP PO PRN (18:17)
[2020-02-10] MEDS: INSULIN GLARGINE 100 UNITS/ML 10 ML VIAL SQ SCH (21:25)
[2020-02-10] MEDS ORDERED: SODIUM CHLORIDE 0.9% 250 ML IV ONE (22:24)
--- NOTE | 2020-02-10 23:19 | NUR ---
CONVALESCENT PLASMA 1st unit of convalescent plasma started
--- NOTE | 2020-02-11 00:28 | NUR ---
TRANSFUSION COMPLETED 1st unit of convalescent plasma completed, no reaction noted.
[2020-02-11] MEDS: CLOTRIMAZOLE 10 MG TROCHE MM SCH ×5 (00:33→23:45)
[2020-02-11] MEDS: PHARMACY COMMUNICATION MISC SCH ×2 (02:15→09:05)
--- NOTE | 2020-02-11 02:20 | NUR ---
CONVALESCENT PLASMA UNIT #2 2nd unit of plasma started
[2020-02-11] MEDS: LACTULOSE 20 GM/30 ML UDCUP PO SCH ×4 (03:06→21:00)
[2020-02-11] MEDS: ACETAMINOPHEN-CODEINE 300/30MG TAB PO PRN ×2 (03:06→21:00)
--- NOTE | 2020-02-11 03:18 | NUR ---
TRANSFUSION COMPLETED 2nd unit of plasma completed, no reaction noted.
[2020-02-11 03:47] VITALS: BP 167/79
[2020-02-11] MEDS: INSULIN HUMULIN R 100 UNIT/ML 3ML SQ SCH ×4 (06:00→20:59)
[2020-02-11 07:30] VITALS: BP 136/69
[2020-02-11] MEDS: PHARMACY COMMUNICATION** REMDESIVIR ORDER MISC SCH ×3 (08:15→22:09)
[2020-02-11] MEDS: DOXYCYCLINE HYCLATE 100 MG TABLET PO SCH ×2 (08:40→20:58)
[2020-02-11] MEDS: PHENAZOPYRIDINE HCL 200 MG TABLET PO SCH (08:41)
[2020-02-11] MEDS: CEFTRIAXONE SODIUM 1 GM IVP SCH ×2 (08:41→20:58)
[2020-02-11] MEDS: ASCORBIC ACID 500 MG TAB PO SCH (08:41)
[2020-02-11] MEDS: METFORMIN HCL 500 MG TABLET PO SCH ×2 (08:41→17:13)
[2020-02-11] MEDS: GUAIFENESIN 600 MG TABLET.ER PO SCH ×2 (08:41→20:58)
[2020-02-11] MEDS: GABAPENTIN 100 MG CAPSULE PO SCH ×2 (08:41→20:58)
[2020-02-11] MEDS: METHYLPREDNISOLONE SOD SUCC 125MG/2ML VIAL IVP SCH ×3 (08:42→20:58)
[2020-02-11] MEDS: (Cholecalciferol (Vitamin D3) (Vitamin D3) 25 MCG) PO SCH (08:49)
[2020-02-11] MEDS: ENOXAPARIN SODIUM 40 MG/0.4 ML SYRINGE SQ SCH ×2 (08:49→20:59)
[2020-02-11 09:14] LABS: BASOPHILS % (AUTO) 0.1 % (0.0-5.0); HEMATOCRIT 32.5 % (36-48); LYMPHOCYTES % (AUTO) 5.3 % (21.0-51.0); MEAN CORPUSCULAR HEMOGLOBIN 29.6 pg (27.0-33.0); MEAN CORPUSCULAR HGB CONC 33.2 g/dL (32.0-36.0); MONOCYTES % (AUTO) 7.3 % (3.0-13.0); NEUTROPHILS % (AUTO) 86.2 % (40.0-77.0); PLATELET COUNT (AUTO) 515 K/uL (130-400); RED BLOOD CELL COUNT(AUTO) 3.65 MIL/uL (4.00-5.50); RED CELL DISTRIBUTION WIDTH 12.3 % (11.0-15.5); WHITE BLOOD COUNT (AUTO) 12.4 K/uL (4.8-10.8)
[2020-02-11 09:23] LABS: CARBON DIOXIDE 26 mmol/L (21-32); CHLORIDE 98 mmol/L (101-111); CREATININE 0.8 mg/dL (0.5-1.5); GLOMERULAR FILTR. RATE CALC 74 mL/min (>60); GLUCOSE,RANDOM 173 mg/dL (70-105); POTASSIUM 4.1 mmol/L (3.5-5.1); SODIUM SERUM 135 mmol/L (136-145); UREA NITROGEN, BLOOD 22 mg/dL (7-18)
[2020-02-11 09:28] LABS: ALANINE AMINOTRANSFERASE 41 U/L (12-78); ALBUMIN 2.6 g/dL (3.5-5.0); ASPARTATE AMINOTRANSFERASE 30 U/L (10-37); BILIRUBIN,TOTAL 0.6 mg/dL (0.2-1.0)
[2020-02-11 11:30] VITALS: BP_SYST 106; BP_SYST 140; BP_DIAS 60; BP_DIAS 62
[2020-02-11] MEDS: FLUCONAZOLE 100 MG TAB PO SCH (12:55)
[2020-02-11] MEDS: MULTIVITAMIN WITH MINERALS TABLET PO SCH (12:55)
[2020-02-11 15:30] VITALS: BP 140/62
--- NOTE | 2020-02-11 17:48 | NUR ---
Patient's VSS with no complaints of pain or discomfort. Patient still on NRB (15L). No new changes. Will continue to monitor
[2020-02-11 19:20] VITALS: BP 153/77
[2020-02-11] MEDS: INSULIN GLARGINE 100 UNITS/ML 10 ML VIAL SQ SCH (20:59)
[2020-02-11] MEDS: GUAIFENESIN-DM 200/20 MG 10 ML PO PRN (20:59)
[2020-02-11 23:51] VITALS: BP 108/66
[2020-02-12] MEDS: LACTULOSE 20 GM/30 ML UDCUP PO SCH ×4 (03:31→21:23)
[2020-02-12 03:41] VITALS: BP 115/63
[2020-02-12 04:33] LABS: BASOPHILS % (AUTO) 0.1 % (0.0-5.0); HEMATOCRIT 32.8 % (36-48); LYMPHOCYTES % (AUTO) 2.6 % (21.0-51.0); MEAN CORPUSCULAR HEMOGLOBIN 29.5 pg (27.0-33.0); MEAN CORPUSCULAR HGB CONC 33.2 g/dL (32.0-36.0); MEAN CORPUSCULAR VOLUME 88.6 fL (79-99); MONOCYTES % (AUTO) 5.7 % (3.0-13.0); NEUTROPHILS % (AUTO) 90.5 % (40.0-77.0); PLATELET COUNT (AUTO) 502 K/uL (130-400); RED CELL DISTRIBUTION WIDTH 12.5 % (11.0-15.5); WHITE BLOOD COUNT (AUTO) 16.4 K/uL (4.8-10.8)
[2020-02-12 04:50] LABS: ALANINE AMINOTRANSFERASE 40 U/L (12-78); ALBUMIN 2.5 g/dL (3.5-5.0); ASPARTATE AMINOTRANSFERASE 26 U/L (10-37); BILIRUBIN,TOTAL 0.4 mg/dL (0.2-1.0); CARBON DIOXIDE 27 mmol/L (21-32); CHLORIDE 102 mmol/L (101-111); CREATININE 0.7 mg/dL (0.5-1.5); GLOMERULAR FILTR. RATE CALC 86 mL/min (>60); GLUCOSE,RANDOM 85 mg/dL (70-105); LACTATE DEHYDROGENASE 255 U/L (81-234); POTASSIUM 4.1 mmol/L (3.5-5.1); SODIUM SERUM 137 mmol/L (136-145); TOTAL PROTEIN, SERUM 6.5 g/dL (6.0-8.3); UREA NITROGEN, BLOOD 24 mg/dL (7-18)
[2020-02-12] MEDS: INSULIN HUMULIN R 100 UNIT/ML 3ML SQ SCH ×4 (05:37→21:23)
[2020-02-12] MEDS: CLOTRIMAZOLE 10 MG TROCHE MM SCH ×4 (06:07→21:20)
[2020-02-12 08:00] VITALS: BP 109/59
[2020-02-12] MEDS ORDERED: REMDESIVIR (INVESTIGATIONAL) 100 MG in SODIUM CHLORIDE 0.9% 250 ML IV SCH (08:00)
[2020-02-12] MEDS: PHARMACY COMMUNICATION** REMDESIVIR ORDER MISC SCH ×2 (08:15→16:12)
[2020-02-12] MEDS: METFORMIN HCL 500 MG TABLET PO SCH ×2 (09:24→16:26)
[2020-02-12] MEDS: GABAPENTIN 100 MG CAPSULE PO SCH ×2 (09:24→21:20)
[2020-02-12] MEDS: PHENAZOPYRIDINE HCL 200 MG TABLET PO SCH (09:24)
[2020-02-12] MEDS: GUAIFENESIN 600 MG TABLET.ER PO SCH ×2 (09:25→21:20)
[2020-02-12] MEDS: DOXYCYCLINE HYCLATE 100 MG TABLET PO SCH (09:25)
[2020-02-12] MEDS: CEFTRIAXONE SODIUM 1 GM IVP SCH (09:25)
[2020-02-12] MEDS: (Cholecalciferol (Vitamin D3) (Vitamin D3) 25 MCG) PO SCH (09:25)
[2020-02-12] MEDS: ENOXAPARIN SODIUM 40 MG/0.4 ML SYRINGE SQ SCH ×2 (09:26→21:21)
[2020-02-12] MEDS: ASCORBIC ACID 500 MG TAB PO SCH (09:26)
[2020-02-12] MEDS: METHYLPREDNISOLONE SOD SUCC 125MG/2ML VIAL IVP SCH ×3 (09:45→21:20)
[2020-02-12 11:30] VITALS: BP 108/58
[2020-02-12] MEDS: MULTIVITAMIN WITH MINERALS TABLET PO SCH (13:00)
[2020-02-12] MEDS: FLUCONAZOLE 100 MG TAB PO SCH (13:01)
[2020-02-12 15:30] VITALS: BP_SYST 125; BP_DIAS 67; BP_DIAS 97
--- NOTE | 2020-02-12 16:00 | NUR ---
Patient still on NRB 15L, tolerating well. VSS. Will continue to monitor for any changes Addendum: 02/12/20 at 1603 by BEBA GALVEZ RN RN Amended: Links added. Addendum: 02/12/20 at 1608 by BEBA GALVEZ RN RN Amended: Links added. Addendum: 02/12/20 at 1610 by BEBA GALVEZ RN RN Amended: Links added.
[2020-02-12] MEDS: GUAIFENESIN-DM 200/20 MG 10 ML PO PRN (16:26)
[2020-02-12 20:28] VITALS: BP 113/63
[2020-02-12] MEDS: INSULIN GLARGINE 100 UNITS/ML 10 ML VIAL SQ SCH (21:22)
[2020-02-12 23:43] VITALS: BP 130/85
[2020-02-13] MEDS: PHARMACY COMMUNICATION** REMDESIVIR ORDER MISC SCH ×4 (00:15→23:33)
[2020-02-13] MEDS: BENZOCAINE/MENTH/CETYLPYRD CL 1 EACH LOZENGE MM PRN (03:19)
[2020-02-13] MEDS: GUAIFENESIN-DM 200/20 MG 10 ML PO PRN ×2 (03:19→15:57)
[2020-02-13] MEDS: LACTULOSE 20 GM/30 ML UDCUP PO SCH ×4 (03:20→22:19)
[2020-02-13 04:14] VITALS: BP 128/76
[2020-02-13 05:50] LABS: BASOPHILS % (AUTO) 0.1 % (0.0-5.0); HEMATOCRIT 33.1 % (36-48); LYMPHOCYTES % (AUTO) 3.5 % (21.0-51.0); MEAN CORPUSCULAR HEMOGLOBIN 29.5 pg (27.0-33.0); MEAN CORPUSCULAR HGB CONC 32.3 g/dL (32.0-36.0); MEAN CORPUSCULAR VOLUME 91.2 fL (79-99); MONOCYTES % (AUTO) 7.7 % (3.0-13.0); NEUTROPHILS % (AUTO) 86.8 % (40.0-77.0); PLATELET COUNT (AUTO) 472 K/uL (130-400); RED BLOOD CELL COUNT(AUTO) 3.63 MIL/uL (4.00-5.50); RED CELL DISTRIBUTION WIDTH 12.4 % (11.0-15.5); WHITE BLOOD COUNT (AUTO) 15.2 K/uL (4.8-10.8)
[2020-02-13] MEDS: INSULIN HUMULIN R 100 UNIT/ML 3ML SQ SCH ×4 (06:04→21:28)
[2020-02-13] MEDS: CLOTRIMAZOLE 10 MG TROCHE MM SCH ×4 (06:04→23:33)
[2020-02-13] MEDS: ACETAMINOPHEN-CODEINE 300/30MG TAB PO PRN (06:04)
[2020-02-13 06:06] LABS: ALANINE AMINOTRANSFERASE 38 U/L (12-78); ALBUMIN 2.4 g/dL (3.5-5.0); ASPARTATE AMINOTRANSFERASE 26 U/L (10-37); BILIRUBIN,TOTAL 0.5 mg/dL (0.2-1.0); CARBON DIOXIDE 27 mmol/L (21-32); CHLORIDE 102 mmol/L (101-111); CREATININE 0.7 mg/dL (0.5-1.5); GLOMERULAR FILTR. RATE CALC 86 mL/min (>60); GLUCOSE,RANDOM 93 mg/dL (70-105); LACTATE DEHYDROGENASE 283 U/L (81-234); POTASSIUM 3.9 mmol/L (3.5-5.1); SODIUM SERUM 136 mmol/L (136-145); TOTAL PROTEIN, SERUM 6.2 g/dL (6.0-8.3); UREA NITROGEN, BLOOD 26 mg/dL (7-18)
[2020-02-13 08:00] VITALS: BP 142/78
[2020-02-13] MEDS: GABAPENTIN 100 MG CAPSULE PO SCH ×2 (09:00→21:34)
[2020-02-13] MEDS: (Cholecalciferol (Vitamin D3) (Vitamin D3) 25 MCG) PO SCH (09:00)
[2020-02-13] MEDS: METHYLPREDNISOLONE SOD SUCC 125MG/2ML VIAL IVP SCH ×3 (09:00→21:34)
[2020-02-13] MEDS: GUAIFENESIN 600 MG TABLET.ER PO SCH ×2 (11:23→21:34)
[2020-02-13] MEDS: PHENAZOPYRIDINE HCL 200 MG TABLET PO SCH (11:23)
[2020-02-13] MEDS: ASCORBIC ACID 500 MG TAB PO SCH (11:23)
[2020-02-13] MEDS: ENOXAPARIN SODIUM 40 MG/0.4 ML SYRINGE SQ SCH ×2 (11:24→21:35)
[2020-02-13] MEDS: METFORMIN HCL 500 MG TABLET PO SCH ×2 (11:27→15:57)
[2020-02-13] MEDS: FLUCONAZOLE 100 MG TAB PO SCH (11:27)
[2020-02-13] MEDS: MULTIVITAMIN WITH MINERALS TABLET PO SCH (11:27)
[2020-02-13 12:00] VITALS: BP 163/76
[2020-02-13 16:00] VITALS: BP 162/76
[2020-02-13 21:01] VITALS: BP 136/78
[2020-02-13] MEDS: INSULIN GLARGINE 100 UNITS/ML 10 ML VIAL SQ SCH (21:27)
[2020-02-14 00:09] VITALS: BP 161/75
--- NOTE | 2020-02-14 01:09 | NUR ---
BATH pt bathed,kindra well,cont on non rebreather,sat 92-100%.Instructed pt not to take off her mask,verbalized understanding.
[2020-02-14 03:59] LABS: BASOPHILS % (AUTO) 0.2 % (0.0-5.0); HEMATOCRIT 31.6 % (36-48); MEAN CORPUSCULAR HEMOGLOBIN 29.3 pg (27.0-33.0); MEAN CORPUSCULAR HGB CONC 33.2 g/dL (32.0-36.0); MEAN CORPUSCULAR VOLUME 88.3 fL (79-99); MONOCYTES % (AUTO) 3.3 % (3.0-13.0); PLATELET COUNT (AUTO) 451 K/uL (130-400); RED BLOOD CELL COUNT(AUTO) 3.58 MIL/uL (4.00-5.50); RED CELL DISTRIBUTION WIDTH 12.5 % (11.0-15.5); WHITE BLOOD COUNT (AUTO) 16.3 K/uL (4.8-10.8)
[2020-02-14] MEDS: LACTULOSE 20 GM/30 ML UDCUP PO SCH ×4 (03:59→21:32)
[2020-02-14 04:09] VITALS: BP 125/73
[2020-02-14 04:25] LABS: ALBUMIN 2.3 g/dL (3.5-5.0); BILIRUBIN,TOTAL 0.5 mg/dL (0.2-1.0); CREATININE 0.5 mg/dL (0.5-1.5); CRP QUANTITATIVE 126.4 mg/L (0.00-9.0); POTASSIUM 4.3 mmol/L (3.5-5.1); TOTAL PROTEIN, SERUM 6.2 g/dL (6.0-8.3)
[2020-02-14] MEDS: CLOTRIMAZOLE 10 MG TROCHE MM SCH ×4 (06:00→20:17)
[2020-02-14] MEDS: INSULIN HUMULIN R 100 UNIT/ML 3ML SQ SCH ×4 (06:01→21:23)
[2020-02-14 07:50] VITALS: BP 107/60
[2020-02-14] MEDS: PHARMACY COMMUNICATION** REMDESIVIR ORDER MISC SCH ×3 (07:52→23:45)
[2020-02-14] MEDS: ASCORBIC ACID 500 MG TAB PO SCH (09:35)
[2020-02-14] MEDS: METFORMIN HCL 500 MG TABLET PO SCH ×2 (09:35→17:43)
[2020-02-14] MEDS: ENOXAPARIN SODIUM 40 MG/0.4 ML SYRINGE SQ SCH ×2 (09:35→20:17)
[2020-02-14] MEDS: GUAIFENESIN-DM 200/20 MG 10 ML PO PRN (09:35)
[2020-02-14] MEDS: METHYLPREDNISOLONE SOD SUCC 125MG/2ML VIAL IVP SCH ×3 (09:35→20:17)
[2020-02-14] MEDS: GUAIFENESIN 600 MG TABLET.ER PO SCH ×2 (09:37→20:18)
[2020-02-14] MEDS: PHENAZOPYRIDINE HCL 200 MG TABLET PO SCH (09:44)
[2020-02-14] MEDS: GABAPENTIN 100 MG CAPSULE PO SCH ×2 (09:45→20:17)
[2020-02-14] MEDS: (Cholecalciferol (Vitamin D3) (Vitamin D3) 25 MCG) PO SCH (09:45)
[2020-02-14] MEDS: MULTIVITAMIN WITH MINERALS TABLET PO SCH (12:56)
[2020-02-14] MEDS: FLUCONAZOLE 100 MG TAB PO SCH (12:56)
[2020-02-14 15:03] VITALS: BP 107/67
--- NOTE | 2020-02-14 15:36 | NUR ---
Family notification Spoke to William Castelan and gave him an update regarding patient's condition. All questions were answered and concerns addressed. Verbalized understanding and was grateful for the call.
--- NOTE | 2020-02-14 15:48 | NUR ---
ADDENDUM 02/13/20 FAMILY NOTIFICATION AND UPDATE SPOKE TO JAYASHREE MOORE. GIVEN PT STATUS UPDATE AND PLAN OF CARE . ALL QUESTIONS ANSWERED. GIVEN PASSWORD FOR CALLS
[2020-02-14] MEDS: INSULIN GLARGINE 100 UNITS/ML 10 ML VIAL SQ SCH (20:14)
[2020-02-14 20:46] VITALS: BP 124/47
--- NOTE | 2020-02-14 21:33 | NUR ---
SOB/ANXIETY Pt gest anxious,02 sat drops to 70%,encouraged to take slow deep breathe,stayed with pt and reassured her.pt lying on her left side,02 sat improved to 94% on 100 non rebreather mask.Fredi Rt made at bedside,checked on pt.
--- NOTE | 2020-02-14 23:00 | NUR ---
CALM Pt resting quietly,no distress noted this time.
[2020-02-14 23:44] VITALS: BP 109/57
--- NOTE | 2020-02-15 02:10 | NUR ---
PRN COUGH Pt medicated with Robitussin for cough.
[2020-02-15] MEDS: GUAIFENESIN-DM 200/20 MG 10 ML PO PRN ×2 (02:17→18:07)
--- NOTE | 2020-02-15 02:19 | NUR ---
BM Pt had a large bowel movement.
--- NOTE | 2020-02-15 03:10 | NUR ---
MED EFFECT Pt resting,calm respirations even,unlabored.02 sat 95% on non rebreather mask,pt lying on her side.
[2020-02-15] MEDS: LACTULOSE 20 GM/30 ML UDCUP PO SCH ×4 (03:12→22:07)
[2020-02-15 03:53] VITALS: BP 115/55
[2020-02-15] MEDS: CLOTRIMAZOLE 10 MG TROCHE MM SCH ×4 (04:33→22:08)
[2020-02-15 05:45] LABS: BASOPHILS % (AUTO) 0.1 % (0.0-5.0); HEMATOCRIT 34.5 % (36-48); LYMPHOCYTES % (AUTO) 2.3 % (21.0-51.0); MEAN CORPUSCULAR HEMOGLOBIN 29.5 pg (27.0-33.0); MEAN CORPUSCULAR HGB CONC 32.8 g/dL (32.0-36.0); MEAN CORPUSCULAR VOLUME 90.1 fL (79-99); MONOCYTES % (AUTO) 4.9 % (3.0-13.0); NEUTROPHILS % (AUTO) 91.3 % (40.0-77.0); PLATELET COUNT (AUTO) 463 K/uL (130-400); RED BLOOD CELL COUNT(AUTO) 3.83 MIL/uL (4.00-5.50); RED CELL DISTRIBUTION WIDTH 12.7 % (11.0-15.5); WHITE BLOOD COUNT (AUTO) 18.1 K/uL (4.8-10.8)
[2020-02-15] MEDS: INSULIN HUMULIN R 100 UNIT/ML 3ML SQ SCH ×4 (06:02→22:04)
[2020-02-15 06:19] LABS: CREATININE 0.7 mg/dL (0.5-1.5)
[2020-02-15 06:47] LABS: CRP QUANTITATIVE 149.1 mg/L (0.00-9.0)
[2020-02-15 08:00] VITALS: BP 100/55
[2020-02-15] MEDS: PHARMACY COMMUNICATION** REMDESIVIR ORDER MISC SCH ×2 (08:15→12:25)
[2020-02-15] MEDS: ASCORBIC ACID 500 MG TAB PO SCH (08:45)
[2020-02-15] MEDS: ENOXAPARIN SODIUM 40 MG/0.4 ML SYRINGE SQ SCH ×2 (08:45→21:25)
[2020-02-15] MEDS: GABAPENTIN 100 MG CAPSULE PO SCH ×2 (08:46→22:02)
[2020-02-15] MEDS: MULTIVITAMIN WITH MINERALS TABLET PO SCH (08:46)
[2020-02-15] MEDS: GUAIFENESIN 600 MG TABLET.ER PO SCH ×2 (08:46→21:24)
[2020-02-15] MEDS: PHENAZOPYRIDINE HCL 200 MG TABLET PO SCH (08:46)
[2020-02-15] MEDS: METFORMIN HCL 500 MG TABLET PO SCH ×2 (08:47→17:59)
[2020-02-15] MEDS: METHYLPREDNISOLONE SOD SUCC 125MG/2ML VIAL IVP SCH ×3 (08:47→21:24)
[2020-02-15] MEDS: FLUCONAZOLE 100 MG TAB PO SCH (08:48)
[2020-02-15] MEDS: (Cholecalciferol (Vitamin D3) (Vitamin D3) 25 MCG) PO SCH (09:09)
[2020-02-15 12:00] VITALS: BP 129/56
[2020-02-15] MEDS ORDERED: LORAZEPAM 0.5 MG TABLET PO PRN (13:15)
[2020-02-15] MEDS ORDERED: PHARMACY COMMUNICATION MISC SCH (15:15)
[2020-02-15 16:00] VITALS: BP 132/63
[2020-02-15] MEDS ORDERED: REMDESIVIR (EUA) 520 100 MG VIAL IV ONE (20:00)
[2020-02-15] MEDS ORDERED: REMDESIVIR (EUA) 520 200 MG in SODIUM CHLORIDE 0.9% 250 ML IV ONE (20:00)
[2020-02-15 20:30] VITALS: BP 123/70
[2020-02-15] MEDS: INSULIN GLARGINE 100 UNITS/ML 10 ML VIAL SQ SCH (21:26)
[2020-02-16] VITALS: BP 125/76
[2020-02-16] MEDS: PHARMACY COMMUNICATION** REMDESIVIR ORDER MISC SCH ×3 (00:15→11:08)
[2020-02-16 04:00] VITALS: BP 127/62
[2020-02-16] MEDS: CLOTRIMAZOLE 10 MG TROCHE MM SCH ×2 (04:12→09:03)
[2020-02-16] MEDS: LACTULOSE 20 GM/30 ML UDCUP PO SCH ×3 (04:12→11:08)
[2020-02-16] MEDS: INSULIN HUMULIN R 100 UNIT/ML 3ML SQ SCH ×2 (05:46→11:30)
[2020-02-16 06:38] LABS: BASOPHILS % (AUTO) 0.1 % (0.0-5.0); EOSINOPHILS % (AUTO) 0.1 % (0.0-8.0); HEMATOCRIT 33.2 % (36-48); LYMPHOCYTES % (AUTO) 1.7 % (21.0-51.0); MEAN CORPUSCULAR HEMOGLOBIN 29.6 pg (27.0-33.0); MEAN CORPUSCULAR HGB CONC 32.5 g/dL (32.0-36.0); MONOCYTES % (AUTO) 2.7 % (3.0-13.0); NEUTROPHILS % (AUTO) 94.2 % (40.0-77.0); PLATELET COUNT (AUTO) 432 K/uL (130-400); RED BLOOD CELL COUNT(AUTO) 3.65 MIL/uL (4.00-5.50); WHITE BLOOD COUNT (AUTO) 14.4 K/uL (4.8-10.8)
[2020-02-16 07:27] LABS: ALBUMIN 2.3 g/dL (3.5-5.0); BILIRUBIN,DIRECT 0.1 mg/dL (0.0-0.3); BILIRUBIN,TOTAL 0.4 mg/dL (0.2-1.0); CREATININE 0.8 mg/dL (0.5-1.5); POTASSIUM 3.8 mmol/L (3.5-5.1); TOTAL PROTEIN, SERUM 6.4 g/dL (6.0-8.3)
[2020-02-16 07:39] LABS: CRP QUANTITATIVE 246.8 mg/L (0.00-9.0)
[2020-02-16 08:11] VITALS: BP 130/60
[2020-02-16] MEDS: GABAPENTIN 100 MG CAPSULE PO SCH (09:02)
[2020-02-16] MEDS: ASCORBIC ACID 500 MG TAB PO SCH (09:02)
[2020-02-16] MEDS: MULTIVITAMIN WITH MINERALS TABLET PO SCH (09:02)
[2020-02-16] MEDS: FLUCONAZOLE 100 MG TAB PO SCH (09:03)
[2020-02-16] MEDS: PHENAZOPYRIDINE HCL 200 MG TABLET PO SCH (09:03)
[2020-02-16] MEDS: METHYLPREDNISOLONE SOD SUCC 125MG/2ML VIAL IVP SCH ×2 (09:03→13:05)
[2020-02-16] MEDS: METFORMIN HCL 500 MG TABLET PO SCH (09:03)
[2020-02-16] MEDS: GUAIFENESIN-DM 200/20 MG 10 ML PO PRN (09:03)
[2020-02-16] MEDS: ENOXAPARIN SODIUM 40 MG/0.4 ML SYRINGE SQ SCH (09:04)
[2020-02-16] MEDS: (Cholecalciferol (Vitamin D3) (Vitamin D3) 25 MCG) PO SCH (09:09)
[2020-02-16] MEDS: GUAIFENESIN 600 MG TABLET.ER PO SCH (09:11)
[2020-02-16] MEDS ORDERED: INSULIN GLARGINE 100 UNITS/ML 10 ML VIAL SQ SCH (10:00)
[2020-02-16] MEDS ORDERED: COMPOUND IV REFRIGERATED 1 EACH IVSOLN MISC PRN (11:45)
[2020-02-16 12:07] VITALS: BP 141/82
--- NOTE | 2020-02-16 13:26 | NUR ---
Family notification Spoke to Frederick Castelan to give him an update regarding pt's condition. He was also concerned that pt was not answering her phone. Had STEAM PRESSER go check up on pt and stated pt was asleep. Informed Mr. Castelan pt was asleep and that pt is also on a NRB with some cough and may make it diffficulty for her to speak. Son was understanding and very appreciative of call. All other questions were answered and concerns addressed.
[2020-02-16] MEDS ORDERED: CEFEPIME HCL 2 GM VIAL IVP SCH (15:30)
[2020-02-16] MEDS ORDERED: LINEZOLID 600 MG/ISO-OSM 300 ML IV SCH (15:30)
[2020-02-16 15:36] LABS: BASOPHILS % (AUTO) 0.2 % (0.0-5.0); HEMATOCRIT 35.6 % (36-48); LYMPHOCYTES % (AUTO) 12.3 % (21.0-51.0); MEAN CORPUSCULAR HGB CONC 28.9 g/dL (32.0-36.0); MEAN CORPUSCULAR VOLUME 103.8 fL (79-99); MONOCYTES % (AUTO) 2.7 % (3.0-13.0); NEUTROPHILS % (AUTO) 81.9 % (40.0-77.0); NUCLEATED RED BLOOD CELLS 0.1 % (0.0-0.19); PLATELET COUNT (AUTO) 354 K/uL (130-400); RED BLOOD CELL COUNT(AUTO) 3.43 MIL/uL (4.00-5.50); RED CELL DISTRIBUTION WIDTH 13.4 % (11.0-15.5); WHITE BLOOD COUNT (AUTO) 17.3 K/uL (4.8-10.8)
[2020-02-16 15:52] LABS: INR 1.12 (0.85-1.15); PARTIAL THROMBOPLASTIN TIME 46.2 SEC (26.3-35.5)
[2020-02-16] MEDS ORDERED: FENTANYL 2500MCG+NS 250ML 250 ML IV ONE (16:01)
[2020-02-16 16:06] LABS: ABG BASE EXCESS -20.9 mmol/L (-2.0-3.0); ABG HCO3 10.9 mmol/L (21.0-28.0); ABG OXYGEN SATURATION 82.7 % (95.0-99.0); ABG PCO2 52 mmHg (32-45)
[2020-02-16 16:08] LABS: CREATININE 1.1 mg/dL (0.5-1.5); POTASSIUM 5.2 mmol/L (3.5-5.1)
[2020-02-16] MEDS ORDERED: MIDAZOLAM 50MG-0.9% NS 50ML 50 ML BAG IV SCH (16:15)
[2020-02-16] MEDS ORDERED: ROCURONIUM BROMIDE 250 MG in SODIUM CHLORIDE 0.9% 250 ML IV SCH (16:15)
[2020-02-16] MEDS ORDERED: FENTANYL CITRATE PF 0.05 MG/ML 1,000 MCG in SODIUM CHLORIDE 0.9% 100 ML IVPB SCH (16:15)
[2020-02-16] MEDS ORDERED: ROCURONIUM BROMIDE 100 MG in SODIUM CHLORIDE 0.9% 100 ML IV SCH (16:15)
--- NOTE | 2020-02-16 16:20 | NUR ---
Pt transferred to ICU after becoming unresponsive (Tele called for Sinus Zohaib) and code blue initiated. Patient later intubated and pulse found. Family updated on status by miniature model maker.
[2020-02-16 16:26] LABS: ALBUMIN 1.8 g/dL (3.5-5.0); BILIRUBIN,TOTAL 0.5 mg/dL (0.2-1.0); TOTAL PROTEIN, SERUM 5.6 g/dL (6.0-8.3)
[2020-02-16] MEDS ORDERED: SODIUM CHLORIDE 0.9% 500ML 500 ML IV ONE (16:28)
[2020-02-16] MEDS ORDERED: FENTANYL 2500MCG+NS 250ML 250 ML IV SCH (16:30)
[2020-02-16] MEDS ORDERED: MIDAZOLAM 50MG-0.9% NS 50ML 50 ML IV SCH (16:30)
[2020-02-16] MEDS ORDERED: NOREPINEPHRINE 4MG/NS 250ML 250 ML IV ONE (16:39)
[2020-02-16] MEDS ORDERED: SODIUM BICARB 50MEQ 50ML VIAL ONE (16:39)
--- NOTE | 2020-02-16 16:48 | NUR ---
PT PT BECAME BRADYCARDIC AND HYPOTENSIVE. DR. CONNELLY AND DR. WEBBER AT BEDSIDE. PT BECAME PULSELESS AND CPR WAS INITIATED. PT AT 1648, PRONOUNCED BY DR. CONNELLY AND SPOKE TO SON, JAYASHREE MOORE.
[2020-02-16] MEDS ORDERED: REMDESIVIR (EUA) 520 100 MG in SODIUM CHLORIDE 0.9% 250 ML IV SCH (20:00)
== END 2020-02-16 17:50 | disposition expired | DRG 871 ==
LOC: EDH 09:15 → EDHIP 13:35 → 4AH 02-03 05:00 → 2CV 02-16 15:37
PROVIDERS: ADMIT Internal Medicine; ATTEND Internal Medicine
PROC: 30233K1 Transfusion of Nonautologous Frozen Plasma into Peripheral Vein, Percutaneous Approach (ICD-10-PCS; principal; 2020-02-16)
PROC: 5A1935Z Respiratory Ventilation, Less than 24 Consecutive Hours (ICD-10-PCS; 2020-02-16)
PROC: 0BH17EZ Insertion of Endotracheal Airway into Trachea, Via Natural or Artificial Opening (ICD-10-PCS; 2020-02-16)
PROC: 5A12012 Performance of Cardiac Output, Single, Manual (ICD-10-PCS; 2020-02-16)
DX: A41.50 Gram-negative sepsis, unspecified (principal); U07.1 COVID-19; J96.01 Acute respiratory failure with hypoxia; J12.89 Other viral pneumonia; J96.02 Acute respiratory failure with hypercapnia; R65.21 Severe sepsis with septic shock; N39.0 Urinary tract infection, site not specified; B37.0 Candidal stomatitis; D68.69 Other thrombophilia; E11.9 Type 2 diabetes mellitus without complications; E66.9 Obesity, unspecified; F41.9 Anxiety disorder, unspecified; I10 Essential (primary) hypertension; K59.00 Constipation, unspecified; K75.89 Other specified inflammatory liver diseases; I46.9 Cardiac arrest, cause unspecified; E86.0 Dehydration; R53.81 Other malaise; Z68.28 Body mass index [BMI] 28.0-28.9, adult; Z74.01 Bed confinement status; Z78.9 Other specified health status; Z90.49 Acquired absence of other specified parts of digestive tract
CPT/HCPCS: 31500; 36415; 36430; 36600; 70450; 71045; 74176; 76700; 76705; 80048; 80053; 80076; 81001; 82435; 82550; 82728; 82803; 82947; 82948; 83605; 83615; 83690; 83874; 83880; 84132; 84145; 84295; 84484; 85018; 85025; 85378; 85610; 85730; 86140; 86850; 86900; 86901; 86927; 87040; 87077; 87088; 87186; 87804; 87880; 92950; 93005; 94002; 96374; G0378; J0692; J0696; J1650; J1815; J1885; J2020; J2060; J2920; J2930; J3010; J3490; J7040; J7050; J7120; J8540; P9017; U0003